=== PATIENT | female | born 1975 | race African-American/Black ===

== ENCOUNTER 2016-09-09 21:03 | Emergency (ER) | payer SELFPAY ==
[~2016-09-09] VITALS: Ht 167.6 cm; Wt 60.0 kg
[~2016-09-09 21:03] MED LIST: CYCL-36 PO; IBUP-238 PO; IBUP800; IBUP800 PO
[2016-09-09 21:05] VITALS: BP 162/102; PULSE 86; RESP 16; TEMP 98.3; O2SAT 96
[2016-09-10] MEDS ORDERED: KETOROLAC TROMETHAMINE 60 MG/2 ML (IM) VIAL IM ONE
[2016-09-10] MEDS ORDERED: DICL75TA PO (00:03)
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
== END 2016-09-10 00:45 | disposition home or self-care (01) ==
LOC: NEPD 21:03
DX: S20.212A Contusion of left front wall of thorax, initial encounter (principal); M13.80 Other specified arthritis, unspecified site; J44.9 Chronic obstructive pulmonary disease, unspecified; F17.200 Nicotine dependence, unspecified, uncomplicated; Z79.899 Other long term (current) drug therapy; W51.XXXA Accidental striking against or bumped into by another person, initial encounter; Y92.252 Music hall as the place of occurrence of the external cause
CPT/HCPCS: 71101; 96372; 99284; J1885